=== PATIENT | female | born 1980 | race Caucasian/White ===

== ENCOUNTER 2019-06-27 10:30 | Outpatient (CLI) | payer BC, SELFPAY ==
--- NOTE | 2019-06-27 | US_ITS ---
WS: [id number] URINARY BLADDER ULTRASOUND HISTORY: URINARY FREQUENCY COMPARISON: None available. Mildly distended urinary bladder on prevoid imaging. No mass or adjacent fluid. Post void volume: 6 cubic centimeters. US/US pelvic limited [id number] IMPRESSION: No significant post void residual.
== END 2019-06-27 10:31 | disposition home or self-care (01) ==
LOC: RADOUTREAD 11:43
PROVIDERS: Family Provider Family Medicine; Visit Provider Family Medicine
DX: R35.0 Frequency of micturition (principal)

== ENCOUNTER 2019-12-31 15:28 | Outpatient (RCR) | payer BC, SELFPAY | END 2020-01-16 23:59 | disposition home or self-care (01) | LOC: SPT 15:28 | PROVIDERS: PCP Family Medicine; Referring Provider Family Medicine; Visit Provider Family Medicine | DX: N39.3 Stress incontinence (female) (male) (principal) | CPT/HCPCS: 97161 ==

== ENCOUNTER 2020-01-17 06:00 | Outpatient (RCR) | payer BC, SELFPAY | END 2020-02-16 23:59 | disposition home or self-care (01) | LOC: SPT 06:00 | PROVIDERS: PCP Family Medicine; Referring Provider Family Medicine; Visit Provider Family Medicine | DX: N39.3 Stress incontinence (female) (male) (principal) | CPT/HCPCS: 97110; 97112 ==

== ENCOUNTER → 2020-04-13 13:30 | Outpatient (BNVA) | payer BC, SELFPAY | PROVIDERS: PCP Family Medicine; Referring Provider Family Medicine; Visit Provider Nurse Practitioner Family | DX: R32 Unspecified urinary incontinence (principal) | CPT/HCPCS: 81003 ==

== ENCOUNTER → 2020-06-15 15:47 | Outpatient (BNVA) | payer BC, SELFPAY | PROVIDERS: PCP Family Medicine; Visit Provider Urology | DX: N39.8 Other specified disorders of urinary system (principal); N39.43 Post-void dribbling | CPT/HCPCS: 81003 ==

== ENCOUNTER 2022-02-23 15:25 | Outpatient (CLI) | payer BC, SELFPAY ==
--- NOTE | 2022-02-23 15:30 | MM_ITS ---
WS: [id number] Bilateral screening 3D tomosynthesis digital mammogram, 02/23/2022 Clinical Data: SCREENING Comparison: 05/04/2011. Findings: The breast parenchymal pattern shows ridging is density No spiculated masses or clustered calcificati ons are seen. There are no secondary signs of carcinoma. MM/[place] [id number] Impression: 1. Negative bilateral mammogram unchanged. 2. Recommend annual screening mammograms. BIRADS: 1-Negative FOLLOW UP: 1 Year Follow-up The CAD calibration checker was used.
== END 2022-02-23 15:26 | disposition home or self-care (01) ==
LOC: RAD 15:26
PROVIDERS: PCP Family Medicine; Visit Provider Family Medicine
DX: Z12.31 Encounter for screening mammogram for malignant neoplasm of breast (principal)
CPT/HCPCS: 77063; 77067

== ENCOUNTER 2023-03-16 08:18 | Outpatient (CLI) | payer BC, SELFPAY ==
--- NOTE | 2023-03-16 08:27 | MM_ITS ---
WS: [id number] BILATERAL SCREENING DIGITAL TOMOSYNTHESIS MAMMOGRAM WITH CAD HISTORY: SCREENING COMPARISON: 02/23/2022 and 05/04/2021 Bilateral CC and MLO views with tomosynthesis and synthetic mammography submitted. Computer aided det ection analyzed. Breast composition: The breasts are heterogeneously dense, which may obscure small masses. No suspici ous masses, microcalcifications or architectural distortion. Stable asymmetries and calcifications. IMPRESSION: MM/[place] [id number] BI-RADS: 2-Benign FOLLOW UP: 1 Year Follow-up
== END 2023-03-16 08:19 | disposition home or self-care (01) ==
PROVIDERS: PCP Family Medicine; Visit Provider Family Medicine
DX: Z12.31 Encounter for screening mammogram for malignant neoplasm of breast (principal)
CPT/HCPCS: 77063; 77067

== ENCOUNTER 2024-03-18 09:50 | Outpatient (CLI) | payer BC, SELFPAY ==
--- NOTE | 2024-03-18 09:54 | MM_ITS ---
WS: [id number] BILATERAL 3D TOMOSYNTHESIS DIGITAL SCREENING MAMMOGRAPHY WITH CAD CLINICAL INFORMATION: SCREENING HISTORY: Screening mammogram. No current complaints. COMPARISON: 2022 TECHNIQUE: Bilateral CC and MLO views. FINDINGS: The breasts are composed of heterogeneous fibroglandular density tissue, which can limit the detectio n of small underlying mass lesions. No suspicious mass, asymmetry, calcifications, or architectural d istortion. No evidence of malignancy. Few incidental punctate calcifications. MM/MM [facility] tomosynthesis [id number] IMPRESSION: DENSITY: The breasts are heterogeneously dense, which may obscure small masses. BI-RADS: 2 - Benign FOLLOW UP: 1 Year Follow-up Recommend return to annual screening mammography.
== END 2024-03-18 09:51 | disposition home or self-care (01) ==
LOC: RAD 09:50
PROVIDERS: PCP Family Medicine; Visit Provider Family Medicine
DX: Z12.31 Encounter for screening mammogram for malignant neoplasm of breast (principal); R92.333 Mammographic heterogeneous density, bilateral breasts; R92.1 Mammographic calcification found on diagnostic imaging of breast
CPT/HCPCS: 77063; 77067

== ENCOUNTER 2024-10-21 15:01 | Outpatient (RCR) | payer BC, SELFPAY | END 2024-11-15 23:59 | disposition home or self-care (01) | LOC: SPT 15:01 | PROVIDERS: Visit Provider Obstetrics & Gynecology | DX: N39.46 Mixed incontinence (principal); K59.00 Constipation, unspecified; R10.2 Pelvic and perineal pain | CPT/HCPCS: 97110; 97161; 97530 ==

== ENCOUNTER 2024-11-16 05:00 | Outpatient (RCR) | payer BC, SELFPAY | END 2024-12-15 23:59 | disposition home or self-care (01) | LOC: SPT 05:00 | PROVIDERS: Visit Provider Obstetrics & Gynecology | DX: N39.46 Mixed incontinence (principal); K59.00 Constipation, unspecified; R10.2 Pelvic and perineal pain; M24.852 Other specific joint derangements of left hip, not elsewhere classified | CPT/HCPCS: 97110 ==

== ENCOUNTER 2025-03-23 08:21 | Outpatient (CLI) | payer BC, SELFPAY ==
--- NOTE | 2025-03-23 08:27 | MM_ITS ---
WS: [id number] BILATERAL SCREENING DIGITAL TOMOSYNTHESIS MAMMOGRAM WITH CAD HISTORY: SCREENING COMPARISON: 03/18/2024, 03/16/2023, 02/23/2022 Bilateral CC and MLO views with tomosynthesis and synthetic mammography submitted. Computer aided detection analyzed. Breast composition: The breasts are heterogeneously dense, which may obscure small masses. No suspicious masses, microcalcifications or architectural distortion. Scattered asymmetries and numerous calcifications in each breast. No suspicious grouping of calcifications. There has been a slow increase in the number of scattered calcifications. MM/MM [facility] tomosynthesis [id number] IMPRESSION: BI-RADS: 2 - Benign FOLLOW UP: 1 Year Follow-up
== END 2025-03-23 08:22 | disposition home or self-care (01) ==
LOC: RAD 08:22
PROVIDERS: Visit Provider Family Medicine
DX: Z12.31 Encounter for screening mammogram for malignant neoplasm of breast (principal); R92.333 Mammographic heterogeneous density, bilateral breasts; R92.1 Mammographic calcification found on diagnostic imaging of breast; N64.89 Other specified disorders of breast
CPT/HCPCS: 77063; 77067